=== PATIENT | male | born 1985 | race Caucasian/White ===

== ENCOUNTER 2018-01-09 12:14 | Emergency (ER) | payer OTHER, SELFPAY ==
[2018-01-09] MEDS ORDERED: Ketorolac Tromethamine 60 MG/2 ML VIAL ONE (14:42)
--- NOTE | 2018-01-09 15:29 | RAD ---
LUMBAR SPINE 3 VIEWS: History A 32-year-old male with a history of low back pain. [place] 01/07/14. FINDINGS: The disk spaces are adequately preserved. No fracture or dislocation or other acute process. No foc al bone lesion. IMPRESSION: Unremarkable lumbar spine. Stable from prior study. POS: [facility]US
== END 2018-01-09 15:21 | disposition home or self-care (01) ==
LOC: ERS 12:14
DX: M62.830 Muscle spasm of back (principal); M62.838 Other muscle spasm; I10 Essential (primary) hypertension; F41.9 Anxiety disorder, unspecified; F32.9 Major depressive disorder, single episode, unspecified; F20.9 Schizophrenia, unspecified; F43.10 Post-traumatic stress disorder, unspecified; F17.210 Nicotine dependence, cigarettes, uncomplicated; Z71.6 Tobacco abuse counseling; V89.2XXA Person injured in unspecified motor-vehicle accident, traffic, initial encounter
CPT/HCPCS: 72100; 96372; 99406; J1885

== ENCOUNTER 2018-07-17 00:10 | Emergency (ER) | payer OTHER, SELFPAY ==
[2018-07-17] MEDS ORDERED: Naloxone HCl 0.4 mg/ml Vial ONE ×2 (00:46→01:08)
== END 2018-07-17 01:20 ==
LOC: ERS 00:10
DX: F11.10 Opioid abuse, uncomplicated (principal); I10 Essential (primary) hypertension; F20.9 Schizophrenia, unspecified; F41.9 Anxiety disorder, unspecified; F17.210 Nicotine dependence, cigarettes, uncomplicated
CPT/HCPCS: 96372; J2310